=== PATIENT | male | born 1965 | race Caucasian/White ===

== ENCOUNTER 2017-09-12 08:00 | Day surgery (SDC) | payer OTHER ==
[~2017-09-12] VITALS: Ht 180.3 cm; Wt 93.3 kg
[~2017-09-12 08:00] MED LIST: ALBU90OI61 INH; GENT.3OPSA OD; LEVSOD75 PO; LORA10 PO; NAPR500 PO; RANI150 PO
[2017-09-12] MEDS ORDERED: ATOR20 PO (08:56)
[2017-09-12] MEDS ORDERED: Omeprazole20 M1 (08:57)
== END 2017-09-12 11:03 | disposition home or self-care (01) ==
LOC: ORSCSDS 08:00
PROVIDERS: Internal Medicine Gastroenterology
PROC: 0DB98ZX Excision of Duodenum, Via Natural or Artificial Opening Endoscopic, Diagnostic (ICD-10-PCS; principal; 2017-09-12 09:30)
PROC: 0DB68ZX Excision of Stomach, Via Natural or Artificial Opening Endoscopic, Diagnostic (ICD-10-PCS; principal; 2017-09-12 09:30)
PROC: 0DJD8ZZ Inspection of Lower Intestinal Tract, Via Natural or Artificial Opening Endoscopic (ICD-10-PCS; principal; 2017-09-12 09:30)
DX: K21.9 Gastro-esophageal reflux disease without esophagitis (principal); R10.13 Epigastric pain; Z12.11 Encounter for screening for malignant neoplasm of colon; Z80.0 Family history of malignant neoplasm of digestive organs; K64.8 Other hemorrhoids; E03.9 Hypothyroidism, unspecified; G47.33 Obstructive sleep apnea (adult) (pediatric); Z79.899 Other long term (current) drug therapy
CPT/HCPCS: 43239; G0105; 88305; 88342; J7120

== ENCOUNTER 2025-02-22 09:27 | Day surgery (SDC) | payer OTHER ==
[~2025-02-22] VITALS: Ht 180.3 cm; Wt 99.4 kg
[~2025-02-22 09:27] MED LIST changes: +ATOR20 PO; +Omeprazole20 M1
[2025-02-22] MEDS ORDERED: CeFAZolin Sodium 2,000 MG VIAL ONE (09:51)
[2025-02-22] MEDS ORDERED: CENTRUM SILVER1 EAC2 PO (10:18)
[2025-02-22] MEDS ORDERED: ALLO100 PO (10:18)
[2025-02-22] MEDS ORDERED: VITAMIN D350 MC3 PO (10:19)
[2025-02-22] MEDS ORDERED: NS 500 ML IV ONE (10:30)
--- NOTE | 2025-02-22 10:30 | NUR ---
02/22/25 10[address] [place] AT BEDSIDE FOR LOCAL INJECTION. T/O PERFORMED PT RECEIVED 7M OF LICOCAINE 1% WITH EPI AND BICARB.
[2025-02-22] MEDS ORDERED: Midazolam HCl 1MG / ML 2ML Vial ONE (11:18)
--- NOTE | 2025-02-22 11:58 | NUR ---
02/22/25 1158 Claire Mandujano PT. ABLE TO FEEL TOUCH TO PINKY & THUMB, OTHERWISE OTHER FINGERS NUMB. RIGHT HAND ELEVATED UP ON PILLOW & ICE PACK.
[2025-02-22 12:05] VITALS: BP 135/83
== END 2025-02-22 12:24 | disposition home or self-care (01) ==
LOC: ORSCSDS 09:27
PROVIDERS: Orthopaedic Surgery
PROC: 0LN70ZZ Release Right Hand Tendon, Open Approach (ICD-10-PCS; principal; 2025-02-22 11:00)
DX: M65.331 Trigger finger, right middle finger (principal); Z87.891 Personal history of nicotine dependence; K21.9 Gastro-esophageal reflux disease without esophagitis
CPT/HCPCS: J0690; J2250